=== PATIENT | male | born 1945 | race Caucasian/White ===

== ENCOUNTER 2024-08-25 05:21 | Observation (INO) ==
--- NOTE | 2024-07-28 11:34 | PAT Medication Instructions ---
Medication Instructions Date of Service July 28, 2024 Home Medications aspirin 81 mg tablet,delayed release (Herminio Low Dose Aspirin) 81 mg PO HS multivitamin 1 tab PO HS omega 3-uww-rkv-fish oil 1,000 mg (120 mg-180 mg) capsule (Fish Oil) 1 cap PO HS ASK your prescriber and surgeon aspirin 81 mg tablet,delayed release (Herminio Low Dose Aspirin) 81 mg PO HS STOP taking 2 weeks before surgery (or as soon as possible if surgery is within 2 weeks) omega 5-txi-tgq-fish oil 1,000 mg (120 mg-180 mg) capsule (Fish Oil) 1 cap PO HS Take evening before surgery multivitamin 1 tab PO HS MORNING OF SURGERY: NOTHING TO EAT OR DRINK AFTER MIDNIGHT Other Notes If you have any questions please call us at [phone] or [phone] or [phone] or [phone]
--- NOTE | 2024-08-02 08:21 | Anesthesiology Consultation ---
Date of Service August 02, 2024 Assessment & Plan (1) Encounter for pre-operative examination: - Infectious disease screening: Per assessment on 08/02/24- No known recent infectious disease contacts or current infectious disease symptoms. - Outpatient joint assessment: Pt currently scheduled for inpatient pathway. If surgeon requests review for outpatient joint pathway, patient is not recommended candidate for outpatient joint program from anesthesia standpoint based on available information. Chart Review Chart Review: Acceptable Risk for Surgery and Patient seen in Pre Admission Testing Teaching & Discussion Pre-Anesthesia Teaching/Discussion Notes: Instructed NPO after midnight before surgery,except medications with 15 cc of water. Medication instructions provided according to the PAT guidelines. History Surgery Operation Date: 08/25/24 10:40 Proposed Procedures p Right Total Hip Arthroplasty - Hua Summers MD Height/Weight Height: 6 ft 2.5 in Weight: 88.8 kg Allergies Allergy/AdvReac Type Severity Reaction Status Date / Time No Known Allergies Allergy Verified 07/28/24 10:33 Medications Home Medications Medication Instructions Recorded Confirmed Last Taken aspirin 81 mg tablet,delayed 81 mg PO HS 01/25/19 07/28/24 01/29/19 release (Herminio Low Dose Aspirin) multivitamin 1 tab PO HS 01/25/19 07/28/24 01/29/19 omega 6-nkp-fel-fish oil 1,000 mg 1 cap PO HS 01/25/19 07/28/24 01/29/19 (120 mg-180 mg) capsule (Fish Oil) Past Medical History Medical History Hx of colonic polyps Hx of gout Hyperlipidemia "Borderline" Osteoarthritis Peripheral neuropathy BL LE Exercise / Class Metabolic Activity II 4-5 Yardwork/Stairs/Walk up hill (one FS: No CP, no SOB) Past Family History Family History Other No family history of adverse response to anesthesia Past Surgical History Surgical History History of colonoscopy History of selective laser trabeculoplasty History of tonsillectomy Past Anesthesia History No Hx of Anesthesia Complications and No Family Hx of Anesthesia Complications History of PONV No Hx of PONV and No Hx of Motion Sickness Social History Smoking Status: Never smoker Do You Dip or Chew Tobacco: No Hx Alcohol Use: Yes Alcohol type: beer and hard liquor alcohol intake frequency: a few times a month Hx Substance Use: No substance use type: does not use Review of Systems Patient denies chest pain, shortness of breath, dyspnea on exertion, fever, chills, cough, wheezing. Physical Exam Vital Signs BP 153/75 P 67 TEMP 66 SP02 98%RA RESP 18 Physical Full cervical extension range of motion. Full TMJ range of motion. TMD 3 finger breaths Mallampati Score 3 Dentition: intact, + caps Lungs: clear throughout to auscultation Cardiac: regular rate and rhythm, no murmurs noted Spine: normal Carotid arteries: negative bruit Extremities: no LE edema Lab Results Anesthesia Preop Results Results Anesthesia Widget: WBC 5.58 K/ul (4.8-10.8) 08/02/24 Hgb 14.2 g/dl (14.0-18.0) 08/02/24 Hct 42.4 % (42.0-52.0) 08/02/24 Plt 146 K/uL (130-400) 08/02/24 Na 141 mmol/L (136-145) 08/02/24 K 4.0 mmol/L (3.5-5.1) 08/02/24 Cl 107 mmol/L (98-107) 08/02/24 CO2 26 mmol/L (21-32) 08/02/24 BUN 22 mg/dl (6-23) 08/02/24 Creat 1.13 mg/dl (0.6-1.4) 08/02/24 Glucose Level 112 mg/dl (70-99(Fasting)) H 08/02/24 PT 10.9 Seconds (9.0-12.0) 08/02/24 PTT 25 Seconds (21-31) 08/02/24 INR 1.0 (0.9-1.1) 08/02/24 Blood Type AB Positive 08/02/24 Antibody Screen NEGATIVE 08/02/24 Testing Electrocardiogram Date: 08/02/24 NSR at 68bpm. "Normal ECG" Chest X-Ray Date: 08/02/24 FINDINGS: Heart size and pulmonary vasculature are normal. No effusion, consolidation, or pneumothorax. IMPRESSION: No acute findings.
--- NOTE | 2024-08-18 16:41 | History & Physical Report ---
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 It is affecting his quality life. It has progressed significantly over the past year and would like to have his hip fixed. Plan: We are going to take him to the operating room and do a right total hip replacement. The placement of this procedure explained. Informed consent was obtained. Will likely use a dual mobility hip system to maximize his stability due to the neuropathy. Use aspirin for DVT prophylaxis. He is planning to be discharged home with his home health and his 's assistance. (2) Peripheral neuropathy: (3) Hyperlipidemia: History of Present Illness Chief Complaint: . Persistent and progressive right hip pain and discomfort. Primary Care Provider: Galo Teague DO . The patient is a 79-year-old gentleman with underlying idiopathic neuropathy who presents for surgical treatment of his right hip. He has several history increasing right hip pain discomfort is gradually gotten worse over time but describes groin pain thigh pain and lateral hip pain. He limps more as the day goes on. Actually started affect his ability to maintain an active lifestyle. His neuropathy is gradually progressive as well which is making his legs weaker. He would like to have his hip fixed. Allergies Allergy/AdvReac Type Severity Reaction Status Date / Time No Known Allergies Allergy Verified 07/28/24 10:33 Home Medications Medication Instructions Recorded Confirmed Type aspirin 81 mg tablet,delayed 81 mg PO HS 01/25/19 07/28/24 History release (Herminio Low Dose Aspirin) multivitamin 1 tab PO HS 01/25/19 07/28/24 History omega 2-whv-btk-fish oil 1,000 mg 1 cap PO HS 01/25/19 07/28/24 History (120 mg-180 mg) capsule (Fish Oil) Past Med/Surg History Problem List Arthritis of right hip Encounter for pre-operative examination Medical History Peripheral neuropathy BL LE Hx of colonic polyps Hx of gout Osteoarthritis Hyperlipidemia "Borderline" Surgical History History of selective laser trabeculoplasty History of colonoscopy History of tonsillectomy Family History Other No family history of adverse response to anesthesia Social History Smoking Status: Never smoker Second Hand Exposure: Yes (hx as a child); Do You Dip or Chew Tobacco: No; Hx Alcohol Use: Yes Alcohol type: beer and hard liquor Hx Substance Use: No Preferred Language: Comoran Communication Ability: Effective Print Designer Required: No Beliefs That Will Affect Care: None Current Living Situation: Spouse Feels Safe at Home: Yes Assistive Devices: Glasses Review of Systems All systems reviewed & are unremarkable except as noted in HPI & below. Physical Exam . Physical examination reveals a pleasant fairly tall male. His HEENT exam is benign. His neck is supple with no lymphadenopathy. Lungs are clear to auscultation. Heart has regular rate and rhythm. Abdomen soft nontender nondistended upper extremity limbs grossly neuro vas intact as follows. Examination of the right hip reveal patient walks with a slight bit of limp. Leg lengths. Pretty equal. He does have stiffness with hip motion and limited internal rotation to neutral at best. Negative straight leg raise. He does have some diffuse neuropathy/atrophy in both legs. He does walk with a steppage type gait. Constitutional WD/WN, vitals as above Neck trachea midline, no thyromegaly Respiratory normal respiratory effort, lungs clear to auscultation Cardiovascular RRR, no murmur, no edema Gastrointestinal (Abdomen) normal bowel sounds, soft, nontender, no hepatosplenomegaly Results & Data Results & Data Laboratory Results . X-rays of the right hip were reviewed. Shows advanced right hip arthritis. He has good complete loss of the joint space. This has progressed significantly over the past year. Diagnostic Findings . PG Care Time/CCT Total # of Minutes Spent Total Time Spent with Patient: Total time spent is greater than 50% in coordination of care (as documented) at patient's floor/unit and/or counseling patient: Coding Level of Care Code None Diagnoses Arthritis of right hip M16.11 Peripheral neuropathy G62.9 Hyperlipidemia E78.5
[2024-08-25] MEDS: LR 60ML/HR IV SCH (05:53)
[2024-08-25] MEDS: LR 500ML BOLUS, THEN 15ML/HR IV SCH (05:53)
[2024-08-25] MEDS: ACETAMINOPHEN 500 MG TAB PO SCH ×2 (05:55→13:09)
[2024-08-25] MEDS: dexAMETHasone**PF** 10 MG/ML VIAL IV SCH (05:55)
[2024-08-25] MEDS: FAMOTIDINE 20 MG TAB PO SCH (05:55)
[2024-08-25] MEDS: CeleBREX 200 MG CAP PO SCH (05:55)
[2024-08-25] MEDS: METOCLOPRAMIDE HCL 10 MG TABLET PO SCH (05:55)
[2024-08-25] MEDS ORDERED: BUPIVACAINE 0.5 % 5 MG/1 ML PF 10ML VIAL ONE (06:14)
[2024-08-25] MEDS ORDERED: LIDOCAINE 2% 2 ML VIAL/AMP(20MG/ML) INFIL ONE (06:27)
[2024-08-25] MEDS ORDERED: MIDAZOLAM HCL 1 MG/ML 2ML VIAL ONE (06:32)
[2024-08-25] MEDS ORDERED: PROPOFOL IV EMULSION 10 MG/ML 100 ML VIAL IV ONE (06:41)
--- NOTE | 2024-08-25 06:41 | History & Physical Bridge Note ---
Date of Service August 25, 2024 History & Physical Bridge Note I have examined the patient, reviewed the History & Physical and in the interval since the performance of the History & Physical I have noted the following changes of clinical significance: no changes noted
[2024-08-25] MEDS: TRANEXAMIC ACID 1,000 MG **IV Pre-op IV SCH (06:49)
[2024-08-25] MEDS ORDERED: ePHEDrine sulfate 50 MG/5 ML SYR ONE (07:11)
[2024-08-25] MEDS ORDERED: PHENYLEPHRINE 100MCG/ML 5ML SYR ONE (07:38)
[2024-08-25] MEDS ORDERED: GLYCOPYRROLATE 0.2 MG/ML VIAL ONE (07:38)
[2024-08-25] MEDS ORDERED: ONDANSETRON INJ 2 MG/ML 2 ML VIAL ONE (08:06)
[2024-08-25] MEDS: BUPIVACAINE/EPINEPHRINE 0.5% MPF 1:200,000 30 ML VIAL ONE (08:16)
--- NOTE | 2024-08-25 08:46 | Operative Report ---
PG Post Operative Report Pre & Post Diagnosis Operation Date: 08/25/24 07:00 Pre-Op Diagnosis: Right Hip Osteoarthritis Post-Op Diagnosis: Right Hip Osteoarthritis I identified the patient and participated in the time-out.: Yes Procedure Operation Date: 08/25/24 07:00 Actual Procedures p Right Total Hip Arthroplasty(Right) - Hua Summers MD Surgeon Hua Summers MD Referral Management Liaison Saturnino Arnett PA-C Estimated Blood Loss 100 Findings Consistent with Post-Op Diagnosis Specimens Right femoral head sent for pathology. Anesthesia Type Spinal MAC Complications none Disposition Accompanied Patient To Recovery: No Indications The patient is a 79-year-old gentleman whose got a gradual progressive neurological disorder. Over the past several years he has developed increasing right hip pain discomfort describes got worse and started to really limit his ability ambulate. The x-rays show advanced right hip arthritis. He failed conservative treatment. He was desiring a total hip arthroplasty. Due to this neurological disorder we elected to place a dual mobility insert to maximize his stability. Description of Procedure Operative implants consist of: 1. Biomet G7 size 60 mm acetabular shell. 2. 6.5 cancellous acetabular screws 1 of 35 mm length and 125 mm length. 3. Biomet metal dual mobility liner. 4. DePuy Karaya size 11 KLA femoral stem. 5. +5/28 mm metal articular ball with a 46 mm dual mobility head/liner. The patient was taken to the operating, identified, placed on the operating table in the supine position. All contact areas were appropriately padded. IV antibiotics fibra by anesthesia team. A spinal anesthetic been implemented holding area. The patient was then placed in the left lateral decubitus position. An axillary roll was placed. A stool Birkett position was used for positioning. The right hip and leg were then prepped and draped in usual sterile fashion. A posterolateral approach to the right hip was then performed to a curvilinear incision centered over the greater trochanter. Sharp dissection was Through subcutaneous tissue down to the IT band gluteal fascia. The IT band gluteal fascia was sized longitudinally in line with skin incision. The underlying greater bursa was excised. The piriformis and external rotators along with the posterior joint capsule were then released from the posterior aspect the hip as a single layer. Great care was taken throughout the procedure to protect the sciatic nerve at all times. The hip was then internally rotated and dislocated. A femoral neck osteotomy cut was made with Final Cut about 15 mm above the lesser trochanter. Femoral head was removed and sent for pathology. The femur was retracted anteriorly. Attention drawn the acetabulum. The acetabular labrum was excised. The Pulvinal fat was excised. Sequential reaming the acetabular was then performed again with size 49 progressing up to a 59. I reamed a little bit with a 60 reamer and then placed a 60 mm Biomet G7 acetabular shell in about 20 degrees of anteversion and 40 degrees lateral opening. It was fixed with two 6.5 screws. Trial liner was placed. Attention drawn the femur. The proximal femur was entered with a cookie cutter followed by canal finder. I then broached began size 8 and progressing up to 11. We got an excellent fit 11. Did not think we could likely fit the 12 down. We trialed this and the +5 articular ball provided full stability. Soft tissue tension seemed appropriate. Of considering using a longer neck but the he was still little bit tight in extension and did not want to increase the soft tissue tension. We elected to place these implants. All trial implants were removed. A dual mobility liner was placed. A size 11 KLA femoral stem was impacted in position. A +5/28 mm articular ball with a 56 mm dual mobility liner was then placed. Hip was located and once again found to be stable. Attention drawn toward closing. Wounds irrigated coconuts and pulsatile lavage solution. I injected locally with 60 cc of half percent Marcaine with epinephrine. The posterior capsule and external rotators then repaired through drill holes in the posterior trochanter with #2 Tycron suture. The IT band gluteal fascia then closed in 1 PDS suture in running fashion the subcutaneous tissue then closed with 2 layers the deep layer #1 Vicryl suture in the subcutaneous tissues with 2-0 Dexon suture in a buried interrupted fashion. Skin was closed skin alber. Leg was then cleaned and dried and a sterile dressing with Xeroform, four-port, ABD pad and foam tape was applied. Patient then transferred to the recovery room in stable condition. Patient tolerated the procedure well and there were no complications. Saturnino Arnett, my physician culinary assistant, was present for the entire procedure. His assistance was required for proper patient positioning, prepping and draping, surgical exposure, retraction, perform the technical details of the operation, placement of the hardware and implants, and closure of the incision site and placement of postoperative sterile bandage. I attest to the content of the Intraoperative Record and any orders documented therein. Any exceptions are noted below.
--- NOTE | 2024-08-25 08:58 | XRay Report ---
XR hip 1V RT w pelvis CLINICAL HISTORY: IN PACU - Post Surgical COMPARISON: None FINDINGS: Right hip prosthesis shows no hardware complication. There is expected soft tissue gas. Sk in alber are present. IMPRESSION: Unremarkable postoperative exam. ACT 112: Negative or not required by law. Electronically signed by: Timi Yanez M.D. 08/25/2024 8:57 AM
[2024-08-25] MEDS ORDERED: ALUMINUM/MAGNESIUM SUSP 30 ML UDC PO PRN (10:06)
[2024-08-25] MEDS ORDERED: NALOXONE HCL 0.4 MG/1 ML VIAL/CARP IV PRN (10:06)
[2024-08-25] MEDS ORDERED: TAMSULOSIN HCL 0.4 MG CAP PO PRN (10:06)
[2024-08-25] MEDS ORDERED: MAGNESIUM HYDROXIDE SUSP 30 ML UDC PO PRN (10:06)
[2024-08-25] MEDS ORDERED: ONDANSETRON INJ 2 MG/ML 2 ML VIAL IV PRN (10:06)
[2024-08-25] MEDS ORDERED: METOCLOPRAMIDE HCL INJ 5 MG/ML 2 ML VIAL IV PRN (10:06)
[2024-08-25] MEDS ORDERED: HYDROmorphone INJ 0.5 MG/0.5 ML SYR IV PRN (10:06)
[2024-08-25] MEDS ORDERED: SENNA 8.6 MG TAB PO SCH (10:06)
--- NOTE | 2024-08-25 10:16 | Anesthesiology Progress Note ---
Date of Service August 25, 2024 Anesthesia Post Procedure Vital Signs Vital Signs: Temp Pulse Pulse Resp BP Pulse Ox O2 Del Method 08/25/24 10:06 36.4 C L 65 20 117/65 96 Room Air 08/25/24 09:35 71 16 113/55 L 96 Room Air 08/25/24 09:20 83 18 113/62 94 Room Air 08/25/24 09:05 70 18 101/54 L 94 Room Air 08/25/24 08:55 36.4 C L 78 18 114/63 95 Room Air 08/25/24 08:45 89 16 117/62 98 Room Air 08/25/24 08:36 36.0 C L 85 11 L 109/59 L 99 Oxymask 08/25/24 05:40 36.8 C 81 18 169/61 H 95 Room Air O2 Flow Rate 08/25/24 10:06 08/25/24 09:35 08/25/24 09:20 08/25/24 09:05 08/25/24 08:55 08/25/24 08:45 08/25/24 08:36 10 08/25/24 05:40 Transfer of Care Handoff Completed per policy Notes Mental Status: alert / awake / arousable and participated in evaluation Patient Amnestic to Procedure: Yes Nausea / Vomiting: adequately controlled Pain: adequately controlled Airway Patency, RR, SpO2: stable & adequate BP & HR: stable & adequate Hydration State: stable & adequate Anesthetic Complications: no major complications apparent
--- NOTE | 2024-08-25 12:57 | Hospitalist Consultation ---
Date of Consultation August 25, 2024 Assessment & Plan (1) Sensation of chest pressure: (2) Esophageal obstruction due to food impaction: Patient is a 79-year-old male with past medical history significant for idiopathic peripheral neuropathy, hyperglycemia/prediabetes, HLD, primary open- angle glaucoma of both eyes managed with outpatient laser surgery, history of gout, CKD stage IIIb and HTN who is being seen in consultation postoperatively for evaluation of "chest pressure" after undergoing elective right hip arthroplasty performed by Dr. Summers earlier today. Patient was complaining of chest pressure postoperatively therefore we were consulted to evaluate the patient. -Stat EKG performed which revealed sinus bradycardia but otherwise there was no evidence of acute ST changes. -Stat labs ordered and pending including: HS troponin, CBC w/ diff, CMP and mag/phos. Upon further questioning, patient relays that this chest pressure was caused from "eating lunch too fast" which resulted in a subsequent food bolus which he has been spontaneously coughing up remnants of. VS remain stable; patient saturating in the upper 90s on RA. Patient mentions that the pressure is now more so in his throat as he feels the "food is working its way out." Will trial dose of IV glucagon to stimulate passage of the food bolus. Pt coughing up remnants of the food bolus --> appears to be spontaneously passing w/ regurgitation. -Pt feels pressure is slowly improving. -No immediate indication for EGD eval at this time; pt remains clinically stable. Pt reports long h/o "food not passing" when eating fast which he has to regurgitate often. -Will place routine GI consult for poss EGD eval (inpt vs outpt) -Likely to be facilitated as outpt if pt passes food bolus spontaneously; ? underlying strictures. NPO for now until food bolus resolves. Routine VIDEO CONTROL ENGINEER eval --> can eval pt once GI clears him, could arrange VSS (cannot be done until next week at earliest per d/w VIDEO CONTROL ENGINEER) (3) Arthritis of right hip: (4) S/P total right hip arthroplasty: POD #0 s/p elective right hip arthroplasty performed by Dr. Summers earlier today. EBL: 100mL & Preop Hgb: 14.2 Per ortho for pain control, wound care, anticoagulation and activities. Continue incentive spirometry, PT/OT when appropriate as per ortho team. Monitor H/H for acute blood loss anemia and transfuse blood products PRN. Other Chronic Medical Conditions: HLD - Continue ASA. Not on any cholesterol-lowering meds for >30yrs. HTN - Not on any antihypertensive meds for >30yrs. Routine BP monitoring. DVT Prophylaxis: As per ortho PCP: Dr. Galo Teague Disposition: D/c planning as per ortho Patient seen in collaboration with Dr. Warren. Please see addendum. I spent a total of 48 minutes coordinating, documenting, and providing care for this patient excluding time spent in the performance of separately billed services or time spent by another provider/QHP. This included personally rev iewing all current laboratories and imaging studies, medical reconciliation, outpatient chart review and discussion with specialists. This chart was completed in part utilizing Speech Voice Recognition Software. Grammatical errors, random word insertions, pronoun errors, and incomplete sentences are an occasional consequence of this system due to software limitations, ambient noise, and hardware issues. Any formal questions or concerns about the content, text, or information contained within the body of this dictation should be directly addressed to the provider for clarification. Supervising Physician Co-Signing Physician Notes Patient is a 79-year-old male with history of gout, hyperlipidemia, neuropathy, CKD, osteoarthritis and other medical problems was consulted for postoperative chest pressure sensation. Patient states that he developed chest pressure after eating too fast resulting in suspected food bolus. Had spontaneously has been coughing food remnants. Currently states that he is discomfort is much improved. Family at bedside. Denies any dysphagia history in the past. Also denies any shortness of breath. No significant pain at surgical site. Please review HPI for complete details. Troponin negative. EKG showed no signs of acute ACS. Physical Exam: Vitals signs as noted above General Appearance:Moderately built and nourished, no apparent distress Head: normocephalic, Atraumatic Eyes: normal inspection, EOMI Neck: supple, Trachea midline Respiratory/Chest: Normal breath sounds, CTA, No accessory muscle use Cardiovascular: S1, S2, No murmur Abdomen/GI:Soft, Non tender, Bowel sounds present Extremities/Musculoskeletal:normal inspection, no edema Neurologic/Psych:AAOX3, grossly no focal neurological deficits Skin: normal color, warm Food bolus Suspected dysphagia leading to chest pressure Will make him n.p.o., give a dose of IV glucagon Obtain chest x-ray Aspiration precautions, speech therapy, GI evaluation for possible EGD Less likely ACS Hypophosphatemia Replete electrolytes as needed Postoperative state s/p right hip arthroplasty Monitor for postop anemia Bowel regimen to prevent constipation On aspirin 81mg bid for DVT prophylaxis as per Ortho Pain control, wound care, activity per Ortho I personally interviewed and examined the patient at bedside. I have reviewed the advanced practitioner's documentation on the date of service referred in note and agree with plan. Patient's care is coordinated with Alejandrina Bingham PA-C. Please refer to the documentation above for details of patient's presentation and for discussion of other issues. I spent a total of 25minutes coordinating, documenting, and providing care for this patient excluding time spent in the performance of separately billed services or time spent by another provider/QHP. History of Present Illness Reason for Consultation: "Chest pressure" Requesting Physician: Hua Summers MD Attending Physician: Hua Summers MD History of Present Illness Patient is a 79-year-old male with past medical history significant for idiopathic peripheral neuropathy, hyperglycemia/prediabetes, HLD, primary open- angle glaucoma of both eyes managed with outpatient laser surgery, history of gout, CKD stage IIIb and HTN who is being seen in consultation postoperatively for evaluation of "chest pressure" after undergoing elective right hip arthroplasty performed by Dr. Summers earlier today. Patient was complaining of chest pressure postoperatively therefore we were consulted to evaluate the patient. Upon further questioning, patient relays that this chest pressure was caused from "eating lunch too fast" which resulted in a subsequent food bolus which he has been spontaneously coughing up remnants of. Patient states he consumed some fruit and chicken when this occurred. No difficulty breathing with this event and vitals have remained stable; patient saturating well on RA. Patient mentions that the pressure is now more so in his throat as he feels the "food is working its way out." No pain in his chest with this, only discomfort from the pressure. Stat EKG performed which revealed sinus bradycardia but otherwise there was no evidence of ST changes. Stat labs pending including HS troponin, CBC w/ diff, CMP, magnesium level and phosphorus level. Allergies Allergy/AdvReac Type Severity Reaction Status Date / Time No Known Allergies Allergy Verified 08/25/24 05:46 Home Medications Medication Instructions Recorded Confirmed Type aspirin 81 mg tablet,delayed 81 mg PO HS 01/25/19 08/25/24 History release (Herminio Low Dose Aspirin) multivitamin 1 tab PO HS 01/25/19 08/25/24 History omega 8-foj-rrb-fish oil 1,000 mg 1 cap PO HS 01/25/19 08/25/24 History (120 mg-180 mg) capsule (Fish Oil) acetaminophen 500 mg tablet 1,000 mg (2 x 500 mg) PO TID pain 08/23/24 08/25/24 Rx (Tylenol Extra Strength) 30 days #180 tabs aspirin 81 mg tablet,delayed 81 mg PO BID 45 days #90 tabs 08/23/24 08/25/24 Rx release (Herminio Low Dose Aspirin) cefadroxil 500 mg capsule 500 mg PO BID 7 days #14 caps 08/23/24 08/25/24 Rx ketorolac 10 mg tablet 10 mg PO Q6 pain 5 days #20 tabs 08/23/24 08/25/24 Rx ondansetron 4 mg disintegrating 4 mg PO Q8 PRN nausea #20 tabs 08/23/24 08/25/24 Rx tablet sennosides 8.6 mg tablet (Senokot) 8.6 mg PO BID prevent constipation 08/23/24 08/25/24 Rx 14 days #28 tabs tramadol 50 mg tablet 50 - 100 mg (1 - 2 x 50 mg) PO Q6 08/23/24 08/25/24 Rx PRN pain #40 tabs Patient History Medical History Peripheral neuropathy BL LE Hx of colonic polyps Hx of gout Osteoarthritis Hyperlipidemia "Borderline" Surgical History History of selective laser trabeculoplasty History of colonoscopy History of tonsillectomy Family History Other No family history of adverse response to anesthesia Social History Smoking Status: Never smoker Second Hand Exposure: Yes (hx as a child); Do You Dip or Chew Tobacco: No; Tobacco Cessation Education Requested by Patient: No Hx Alcohol Use: Yes Alcohol type: beer and hard liquor Hx Substance Use: No Preferred Language: Bolivian Communication Ability: Effective Dish Maker Required: No Beliefs That Will Affect Care: None Current Living Situation: Spouse Other Information That Helps Us Care for You: No Feels Safe at Home: Yes Safety Concerns: Feels Safe At This Time Assistive Devices: Glasses Review of Systems Review of Systems: At least ten systems reviewed and negative, except as noted in the HPI. Physical Exam Physical Exam: General: WD/WN, NAD, sitting up in bed, pleasant, conversing appropriately, A+Ox3 HEENT: Normocephalic, atraumatic, conjunctivae normal, oropharynx normal, + emesis bag w/ food remnants Respiratory: Normal respiratory effort, lungs clear to auscultation bilaterally Cardiovascular: Regular rate, rhythm, normal peripheral pulses, no BLE edema Abdomen/GI: Normal bowel sounds, soft, nontender to palpation in all quadrants Extremities/Musculoskeletal: No cyanosis or clubbing, + R hip surgical dressing C/D/I Neurologic: No overt focal deficits, CN's II-XI not formally tested but appear grossly intact bilaterally Results & Data Results & Data Vital Signs (Past 12 Hours) Vital Signs Temp Pulse Pulse Resp BP Pulse Ox O2 Del Method 08/25/24 12:21 36.6 C 63 18 151/72 H Room Air 08/25/24 11:19 34.9 C L 70 18 118/58 L 99 Room Air 08/25/24 10:23 36.5 C 65 18 127/71 94 Room Air 08/25/24 10:06 36.4 C L 65 20 117/65 96 Room Air 08/25/24 09:35 71 16 113/55 L 96 Room Air 08/25/24 09:20 83 18 113/62 94 Room Air 08/25/24 09:05 70 18 101/54 L 94 Room Air 08/25/24 08:55 36.4 C L 78 18 114/63 95 Room Air 08/25/24 08:45 89 16 117/62 98 Room Air 08/25/24 08:36 36.0 C L 85 11 L 109/59 L 99 Oxymask 08/25/24 05:40 36.8 C 81 18 169/61 H 95 Room Air O2 Flow Rate 08/25/24 12:21 08/25/24 11:19 08/25/24 10:23 08/25/24 10:06 08/25/24 09:35 08/25/24 09:20 08/25/24 09:05 08/25/24 08:55 08/25/24 08:45 08/25/24 08:36 10 08/25/24 05:40 Diagnostic Findings Hip/Pelvis X-Ray 08/25/24 08:39 XR hip 1V RT w pelvis CLINICAL HISTORY: IN PACU - Post Surgical COMPARISON: None FINDINGS: Right hip prosthesis shows no hardware complication. There is expected soft tissue gas. Skin alber are present. IMPRESSION: Unremarkable postoperative exam. ACT 112: Negative or not required by law. Electronically signed by: Timi Yanez M.D. 08/25/2024 8:57 AM
[2024-08-25] MEDS: KETOROLAC TROMETHAMINE 15 MG/ML VIAL IV SCH (13:09)
[2024-08-25] MEDS: ASPIRIN 81 MG ECTAB PO SCH (13:10)
[2024-08-25] MEDS: MULTIVITAMIN TAB PO SCH (13:10)
[2024-08-25] MEDS: DOCUSATE SODIUM 100 MG CAP PO SCH (13:10)
[2024-08-25] MEDS: SODIUM CHLORIDE 0.9% 1,000 ML IV SCH (13:11)
[2024-08-25 13:39] LABS: Hematocrit (blood only) 38.3 % (42.0-52.0); Hemoglobin 13.1 g/dl (14.0-18.0); Mean Corpuscular Hemoglobin 31.8 pg (25.0-34.0); Mean Corpuscular Volume 93.0 fL (80.0-100.0); Platelet Count 133 K/uL (130-400); RDW Standard Deviation 45.6 fL (36.4-46.3); Red Blood Count 4.12 M/uL (4.70-6.10); White Blood Count 9.57 K/ul (4.8-10.8)
[2024-08-25 13:41] LABS: Alanine Aminotransferase 11.0 U/L (7-52); Albumin Globulin Ratio 1.5 (0.9-2); Alkaline Phosphatase 45.0 U/L (34-104); Anion Gap 9.0 (3-11); Bilirubin,Total 0.7 mg/dl (0.2-1.0); Blood Urea Nitrogen 21.0 mg/dl (6-23); Calcium 9.1 mg/dl (8.6-10.3); Carbon Dioxide 24.0 mmol/L (21-32); Chloride 105.0 mmol/L (98-107); Creatinine Clr Calc Pharmacy 63.3 ml/min; Globulin 2.7 gm/dl (2.5-4.0); Glucose 192.0 mg/dl (70-99(Fasting)); Magnesium 2.0 mg/dl (1.7-2.4); Potassium 4.0 mmol/L (3.5-5.1); Sodium 138.0 mmol/L (136-145); Total Protein 6.8 gm/dl (6.0-8.3)
[2024-08-25 13:48] LABS: Immature Granulocytes # (auto) 0.05 K/uL (0.01-0.20); Immature Granulocytes % (auto) 0.5 %
[2024-08-25] MEDS ORDERED: SODIUM PHOSPHATE 3 MMOL/1 ML INFUSION IV ONE (14:28)
[2024-08-25] MEDS: GLUCAGON 1 ML IV ONE (14:35)
--- NOTE | 2024-08-25 14:40 | XRay Report ---
XR chest 1V portable CLINICAL HISTORY: food bolus, chest pressure COMPARISON STUDY: 08/02/2024 FINDINGS: Heart size and pulmonary vasculature are normal. No consolidation or pleural effusion. No p neumothorax. IMPRESSION: No acute findings. ACT 112: Negative or not required by law. Electronically signed by: Timi Yanez M.D. 08/25/2024 2:39 PM
--- NOTE | 2024-08-25 15:38 | Gastrointestinal Consultation ---
Date of Consultation August 25, 2024 Assessment & Plan (1) Esophageal obstruction due to food impaction: Resolved at time of evaluation. Patient was given a swallowing challenge and tolerated it without issue. No acute GI plans at present. Supervising Physician Co-Signing Physician Notes Patient seen and examined and agree with HERSON Arndt as above Patient tolerated water challenge and denies any dysphagia or odynophagia. Abd: Soft, NT, ND, +BS Continue current therapy and supportive care History of Present Illness Reason for Consultation: ? Food bolus Attending Physician: Hua Summers MD History of Present Illness Patient is a 79 yo male here for orthopedic surgery. GI consulted for possible food bolus after a meal post op. At the time of our evaluation patient notes that he no longer has anything stuck. He denies further n/v or chest/epigastric discomfort. No drooling/secretions. Allergies Allergy/AdvReac Type Severity Reaction Status Date / Time No Known Allergies Allergy Verified 08/25/24 05:46 Home Medications Medication Instructions Recorded Confirmed Type aspirin 81 mg tablet,delayed 81 mg PO HS 01/25/19 08/25/24 History release (Herminio Low Dose Aspirin) multivitamin 1 tab PO HS 01/25/19 08/25/24 History omega 8-tgt-nbp-fish oil 1,000 mg 1 cap PO HS 01/25/19 08/25/24 History (120 mg-180 mg) capsule (Fish Oil) acetaminophen 500 mg tablet 1,000 mg (2 x 500 mg) PO TID pain 08/23/24 08/25/24 Rx (Tylenol Extra Strength) 30 days #180 tabs aspirin 81 mg tablet,delayed 81 mg PO BID 45 days #90 tabs 08/23/24 08/25/24 Rx release (Herminio Low Dose Aspirin) cefadroxil 500 mg capsule 500 mg PO BID 7 days #14 caps 08/23/24 08/25/24 Rx ketorolac 10 mg tablet 10 mg PO Q6 pain 5 days #20 tabs 08/23/24 08/25/24 Rx ondansetron 4 mg disintegrating 4 mg PO Q8 PRN nausea #20 tabs 08/23/24 08/25/24 Rx tablet sennosides 8.6 mg tablet (Senokot) 8.6 mg PO BID prevent constipation 08/23/24 08/25/24 Rx 14 days #28 tabs tramadol 50 mg tablet 50 - 100 mg (1 - 2 x 50 mg) PO Q6 08/23/24 08/25/24 Rx PRN pain #40 tabs Patient History Medical History Peripheral neuropathy BL LE Hx of colonic polyps Hx of gout Osteoarthritis Hyperlipidemia "Borderline" Surgical History History of selective laser trabeculoplasty History of colonoscopy History of tonsillectomy Family History Other No family history of adverse response to anesthesia Social History Smoking Status: Never smoker Second Hand Exposure: Yes (hx as a child); Do You Dip or Chew Tobacco: No; Tobacco Cessation Education Requested by Patient: No Hx Alcohol Use: Yes Alcohol type: beer and hard liquor Hx Substance Use: No Preferred Language: Korean Communication Ability: Effective Home Supervisor Required: No Beliefs That Will Affect Care: None Current Living Situation: Spouse Other Information That Helps Us Care for You: No Feels Safe at Home: Yes Safety Concerns: Feels Safe At This Time Assistive Devices: Cane and Walker Review of Systems Constitutional: no fever and no chills Respiratory: no cough and no dyspnea Cardiovascular: no chest pain Gastrointestinal: no abdominal pain and no dysphagia (resolved) Physical Exam Constitutional: well developed Respiratory: no respiratory distress Gastrointestinal (Abdomen): Inspection/Auscultation: abdomen normal to inspection Results & Data Vital Signs (Past 12 Hours) Vital Signs Temp Pulse Pulse Resp BP Pulse Ox O2 Del Method 08/25/24 14:07 34.7 C L 63 18 155/74 H 99 Room Air 08/25/24 12:21 36.6 C 63 18 151/72 H Room Air 08/25/24 11:19 34.9 C L 70 18 118/58 L 99 Room Air 08/25/24 10:23 36.5 C 65 18 127/71 94 Room Air 08/25/24 10:06 36.4 C L 65 20 117/65 96 Room Air 08/25/24 09:35 71 16 113/55 L 96 Room Air 08/25/24 09:20 83 18 113/62 94 Room Air 08/25/24 09:05 70 18 101/54 L 94 Room Air 08/25/24 08:55 36.4 C L 78 18 114/63 95 Room Air 08/25/24 08:45 89 16 117/62 98 Room Air 08/25/24 08:36 36.0 C L 85 11 L 109/59 L 99 Oxymask 08/25/24 05:40 36.8 C 81 18 169/61 H 95 Room Air O2 Flow Rate 08/25/24 14:07 08/25/24 12:21 08/25/24 11:19 08/25/24 10:23 08/25/24 10:06 08/25/24 09:35 08/25/24 09:20 08/25/24 09:05 08/25/24 08:55 08/25/24 08:45 08/25/24 08:36 10 08/25/24 05:40 PG Care Time/CCT Total # of Minutes Spent Total Time Spent with Patient: Total time spent is greater than 50% in coordination of care (as documented) at patient's floor/unit and/or counseling patient: Coding Level of Care Code 29089 INT INP/OBS CARE 2/55MIN Diagnoses Esophageal obstruction due to food impaction T18.128A; [id number]
[2024-08-25] MEDS: TRANEXAMIC ACID / 0.7% NACL 1,000 MG/100 ML BAG IV SCH (16:51)
[2024-08-25] MEDS: ASCORBIC ACID 500 MG TAB PO SCH (16:51)
[2024-08-25] MEDS: SODIUM PHOSPHATE 21 MMOL in SODIUM CHLORIDE 0.9% 500 ML IV ONE (16:52)
[2024-08-25] MEDS: SENNA 8.6 MG TAB PO SCH (20:30)
[2024-08-25] MEDS: OMEGA-3 (PURIFIED FISH OIL) 1 GM CAP PO SCH (20:30)
[2024-08-25] MEDS ORDERED: NON-FORMULARY MEDICATION (Multivitamin Tablet) PO SCH (21:00)
[2024-08-26 07:04] LABS: Hematocrit (blood only) 35.6 % (42.0-52.0); Hemoglobin 11.9 g/dl (14.0-18.0); Immature Granulocytes # (auto) 0.08 K/uL (0.01-0.20); Immature Granulocytes % (auto) 0.6 %; Mean Corpuscular Hemoglobin 31.5 pg (25.0-34.0); Mean Corpuscular Volume 94.2 fL (80.0-100.0); Platelet Count 120 K/uL (130-400); RDW Standard Deviation 46.7 fL (36.4-46.3); Red Blood Count 3.78 M/uL (4.70-6.10); White Blood Count 12.83 K/ul (4.8-10.8)
[2024-08-26 07:32] LABS: Anion Gap 9.0 (3-11); Blood Urea Nitrogen 20.0 mg/dl (6-23); Calcium 8.8 mg/dl (8.6-10.3); Carbon Dioxide 24.0 mmol/L (21-32); Chloride 108.0 mmol/L (98-107); Creatinine Clr Calc Pharmacy 61.6 ml/min; Glucose 120.0 mg/dl (70-99(Fasting)); Magnesium 1.9 mg/dl (1.7-2.4); Potassium 4.3 mmol/L (3.5-5.1); Sodium 141.0 mmol/L (136-145)
--- NOTE | 2024-08-26 07:48 | Orthopedic Progress Note ---
Date of Service August 26, 2024 Assessment & Plan (1) S/P total right hip arthroplasty: Overall he is doing fairly well. He is not having much pain in the right hip. He will be seen by physical therapy today for ambulation and range of motion exercises. He can be discharged to home later today. He is on aspirin for DVT prophylaxis. He will follow-up with orthopedics in 2 weeks. Subjective The patient was seen and examined at bedside this morning. Overall he is doing fairly well. He is not having much pain in the right hip. He has been up and ambulating to the bathroom. He has no complaints.. Review of Systems All systems reviewed & are unremarkable except as noted in HPI & below. Physical Exam On physical exam of the right hip, the dressing is clean and dry. His leg is out full extension. He has active dorsiflexion plantarflexion of the right ankle.. Results & Data Results & Data Laboratory Results . Diagnostic Findings Postoperative x-rays of the right hip show the prosthesis to be in anatomic alignment without any evidence of fracture complication, or loosening.. PG Care Time/CCT Total # of Minutes Spent Total Time Spent with Patient: Total time spent is greater than 50% in coordination of care (as documented) at patient's floor/unit and/or counseling patient: Coding Level of Care Code 83946 Post Operative Follow-Up Diagnoses S/P total right hip arthroplasty Z96.641
--- NOTE | 2024-08-26 07:53 | Hospitalist Progress Note ---
Date of Service August 26, 2024 Assessment & Plan (1) Sensation of chest pressure: (2) Esophageal obstruction due to food impaction: Plan: Patient is a 79-year-old male with past medical history significant for idiopathic peripheral neuropathy, hyperglycemia/prediabetes, HLD, primary open- angle glaucoma of both eyes managed with outpatient laser surgery, history of gout, CKD stage IIIb and HTN who is being seen in consultation postoperatively for evaluation of "chest pressure" after undergoing elective right hip arthroplasty performed by Dr. Summers earlier today. Patient was complaining of chest pressure postoperatively therefore we were consulted to evaluate the patient. -Stat EKG performed which revealed sinus bradycardia but otherwise there was no evidence of acute ST changes. -Stat labs ordered and pending including: HS troponin, CBC w/ diff, CMP and mag/phos. Upon further questioning, patient relays that this chest pressure was caused from "eating lunch too fast" which resulted in a subsequent food bolus which he has been spontaneously coughing up remnants of. VS remain stable; patient saturating in the upper 90s on RA. Patient mentions that the pressure is now more so in his throat as he feels the "food is working its way out." Will trial dose of IV glucagon to stimulate passage of the food bolus. Pt coughing up remnants of the food bolus --> appears to be spontaneously passing w/ regurgitation. -Pt feels pressure is slowly improving. -No immediate indication for EGD eval at this time; pt remains clinically stable. Pt reports long h/o "food not passing" when eating fast which he has to regurgitate often. -Will place routine GI consult for poss EGD eval (inpt vs outpt) -Likely to be facilitated as outpt if pt passes food bolus spontaneously; ? underlying strictures. NPO for now until food bolus resolves. Routine [facility] eval --> can eval pt once GI clears him, could arrange VSS (cannot be done until next week at earliest per d/w [facility]) 08/26 - Pt was seen by GI, and symptoms already resolved when seen by them Currently pt is sitting up, awake, alert, and doing well. Reports he ate dinner last night and breakfast this morning and did not have any symptoms. He denies any chest pain or chest discomfort, no cough - he was coughing up a lot of phlegm he said yesterday). Currently he tells me he is being discharged. (3) Arthritis of right hip: (4) S/P total right hip arthroplasty: Plan: POD #1 s/p elective right hip arthroplasty performed by Dr. Summers earlier today. Preop Hgb: 14.2 Per ortho for pain control, wound care, anticoagulation and activities. Continue incentive spirometry, PT/OT when appropriate as per ortho team. Monitor H/H for acute blood loss anemia and transfuse blood products PRN. Other Chronic Medical Conditions: HLD - Continue ASA. Not on any cholesterol-lowering meds for >30yrs. HTN - Not on any antihypertensive meds for >30yrs. Routine BP monitoring. DVT Prophylaxis: As per ortho PCP: Dr. Galo Teague Disposition: D/c planning as per ortho Admission and Anticipated Discharge Date Admission Date: August 25, 2024 Subjective Pt seen in follow up of med. consult pt s/p hip surgery After surgery had chest discomfort, cough , feeling of "food stuck" Pt is currently sitting up in chair in NAD, feeling well, pt's present at the bedside No fever, chills, chest pain, shortness of breath, abd. pain, n/v Review of Systems Review of Systems: All systems reviewed & are unremarkable except as noted in Subjective Physical Exam Physical Exam: General: WD/WN, NAD, pleasant, conversing appropriately, A+Ox3 HEENT: Normocephalic, atraumatic Respiratory: Normal respiratory effort, lungs clear to auscultation bilaterally Cardiovascular: Regular rate, rhythm, normal peripheral pulses, no BLE edema Abdomen/GI: Normal bowel sounds, soft, nontender to palpation in all quadrants Extremities/Musculoskeletal: + R hip surgical dressing C/D/I Neurologic: awake, alert, answers appropriately, speech fluent, moves extremities Results & Data Results & Data Vital Signs (Past 12 Hours) Vital Signs Temp Pulse Resp BP Pulse Ox O2 Del Method 08/26/24 07:23 36.7 C 61 16 151/76 H 99 Room Air 08/26/24 03:09 36.5 C 65 14 161/81 H 97 Room Air 08/25/24 23:29 36.7 C 52 L 14 153/77 H 96 Room Air 08/25/24 20:19 36.6 C 70 16 153/75 H 97 Room Air Laboratory Results 08/26/24 08/25/24 Range/Units 06:53 13:02 WBC 12.83 H 9.57 (4.8-10.8) K/ul RBC 3.78 L 4.12 L (4.70-6.10) M/uL Hgb 11.9 L 13.1 L (14.0-18.0) g/dl Hct 35.6 L 38.3 L (42.0-52.0) % MCV 94.2 93.0 (80.0-100.0) fL MCH 31.5 31.8 (25.0-34.0) pg MCHC 33.4 34.2 (32.0-36.0) g/dL RDW Std Deviation 46.7 H 45.6 (36.4-46.3) fL RDW Coeff of Lauren 13.7 13.5 (11.5-14.5) % Plt Count 120 L 133 (130-400) K/uL MPV 10.2 10.2 (9.4-12.4) fL Immature Gran % (Auto) 0.6 0.5 % Neut % (Auto) 86.2 94.9 % Lymph % (Auto) 6.5 3.2 % [place] % (Auto) 6.6 1.3 % Eos % (Auto) 0.0 0.0 % Baso % (Auto) 0.1 0.1 % Neut # (Auto) 11.06 H 9.08 H (1.40-6.50) K/uL Lymph # (Auto) 0.83 L 0.31 L (1.20-3.40) K/uL [place] # (Auto) 0.85 H 0.12 (0.11-0.59) K/uL Eos # (Auto) 0.00 0.00 (0.00-0.50) K/uL Baso # (Auto) 0.01 0.01 (0.00-0.20) K/uL Immature Gran # (Auto) 0.08 0.05 (0.01-0.20) K/uL Sodium 141 138 (136-145) mmol/L Potassium 4.3 4.0 (3.5-5.1) mmol/L Chloride 108 H 105 (98-107) mmol/L Carbon Dioxide 24 24 (21-32) mmol/L Anion Gap 9 9 (3-11) BUN 20 21 (6-23) mg/dl Creatinine 1.13 1.10 (0.6-1.4) mg/dl Est Cr Clr Drug Dosing 61.6 63.3 ml/min eGFR 66.12 68.29 BUN/Creatinine Ratio 17.7 19.1 (10-20) Glucose 120 H 192 H (70-99(Fasting)) mg/dl Calcium 8.8 9.1 (8.6-10.3) mg/dl Phosphorus 4.5 D 1.8 L (2.5-4.9) mg/dl Magnesium 1.9 2.0 (1.7-2.4) mg/dl Total Bilirubin 0.7 (0.2-1.0) mg/dl AST 25 (13-39) U/L ALT 11 (7-52) U/L Alkaline Phosphatase 45 (34-104) U/L Troponin I High Sens 12.0 (0-20) pg/ml Total Protein 6.8 (6.0-8.3) gm/dl Albumin 4.1 (3.4-5.0) gm/dl Globulin 2.7 (2.5-4.0) gm/dl Albumin/Globulin Ratio 1.5 (0.9-2) Medications Administered Current Inpatient Medications Acetaminophen (Acetaminophen 500 Mg Tab) 1,000 mg PO TID [facility] Stop: 09/24/24 10:14 Last Admin: 08/25/24 20:30 Dose: 1,000 mg Al Hydrox/Mg Hydrox/Simethicone (Aluminum/Magnesium Susp 30 Ml Udc) 15 ml PO Q4H PRN PRN Reason: Heartburn Stop: 09/24/24 10:05 Ascorbic Acid (Ascorbic Acid 500 Mg Tab) 500 mg PO BIDM [facility] Stop: 09/24/24 16:59 Last Admin: 08/25/24 16:51 Dose: 500 mg Aspirin (Aspirin 81 Mg Ectab) 81 mg PO BID [facility] Stop: 09/24/24 10:14 Last Admin: 08/25/24 20:29 Dose: 81 mg Bisacodyl (Bisacodyl 10 Mg Supp) 10 mg [place] DAILY PRN PRN Reason: Constipation Stop: 09/24/24 10:05 Docusate Sodium (Docusate Sodium 100 Mg Cap) 100 mg PO BID [facility] Stop: 09/24/24 10:14 Last Admin: 08/25/24 20:30 Dose: 100 mg Fish Oil ([place]-3 (Purified Fish Oil) 1 Gm Cap) 1 cap PO HS [facility] Stop: 09/24/24 20:59 Last Admin: 08/25/24 20:30 Dose: 1 cap Hydromorphone HCl (Hydromorphone Inj 0.5 Mg/0.5 Ml Syr) 0.5 mg IV Q4H PRN PRN Reason: Pain or Pre PT Stop: 09/08/24 10:05 Dexamethasone 10 mg/ Syringe 2.5 mls @ 1 mls/min IV TODAY@08 [facility] Stop: 08/26/24 08:03 Ketorolac Tromethamine (Ketorolac Tromethamine 15 Mg/Ml Vial) 15 mg IV Q6H [facility] Stop: 08/27/24 04:16 Last Admin: 08/26/24 03:22 Dose: 15 mg Magnesium Hydroxide (Magnesium Hydroxide Susp 30 Ml Udc) 30 ml PO Q6H PRN PRN Reason: Constipation Stop: 09/24/24 10:05 Metoclopramide HCl (Metoclopramide Hcl Inj 5 Mg/Ml 2 Ml Vial) 10 mg IV Q6H PRN PRN Reason: Nausea And Vomiting Stop: 09/24/24 10:05 Multivitamins (Multivitamin Tab) 1 tab PO QAM [facility] Stop: 09/24/24 10:14 Last Admin: 08/25/24 13:48 Dose: Not Given Naloxone HCl (Naloxone Hcl 0.4 Mg/1 Ml Vial/Carp) 0.1 mg IV Q5M PRN PRN Reason: Oversedation/Resp Depression Stop: 09/24/24 10:05 Ondansetron HCl (Ondansetron Inj 2 Mg/Ml 2 Ml Vial) 4 mg IV Q6H PRN PRN Reason: Nausea And Vomiting Stop: 09/24/24 10:05 Sennosides (Senna 8.6 Mg Tab) 17.2 mg PO [facility] Stop: 09/24/24 20:59 Last Admin: 08/25/24 20:30 Dose: 17.2 mg Tamsulosin HCl (Tamsulosin Hcl 0.4 Mg Cap) 0.4 mg PO QAM PRN PRN Reason: UNABLE to void Stop: 09/24/24 10:05 Tramadol HCl (Tramadol Hcl 50 Mg Tablet) 50 - 100 mg PO Q6 PRN PRN Reason: pain Stop: 09/24/24 10:05
[2024-08-26] MEDS: dexAMETHasone 10 MG in SYRINGE 0 ML IV SCH (08:17)
--- NOTE | 2024-08-27 15:49 | Electrocardiogram Report ---
Test Reason : Blood Pressure : */* mmHG Vent. Rate : 59 BPM Atrial Rate : 59 BPM P-R Int : 172 ms QRS Dur : 86 ms QT Int : 444 ms P-R-T Axes : 41 36 42 degrees QTcB Int : 439 ms Sinus bradycardia Otherwise normal ECG When compared with ECG of 02-Aug-2024 08:28, No significant change was found Confirmed by Dean Serrano [id number] on 08/27/2024 3:48:49 PM Referred By: Hua Summers Confirmed By: Dean Serrano
== END 2024-08-26 11:36 | disposition home health service (06) ==
LOC: ASU 05:21 → 3E 05:21